=== PATIENT | male | born 1960 | race African-American/Black ===

== ENCOUNTER 2021-07-19 19:58 | Emergency (ER) | payer MEDICARE ==
[2021-07-19] MEDS ORDERED: Morphine 4 MG/ML VIAL ONE (20:40)
== END 2021-07-19 21:01 | disposition home or self-care (01) ==
LOC: ERS 19:58
DX: M54.31 Sciatica, right side (principal); I10 Essential (primary) hypertension; E78.5 Hyperlipidemia, unspecified; K21.9 Gastro-esophageal reflux disease without esophagitis; E78.00 Pure hypercholesterolemia, unspecified; F17.210 Nicotine dependence, cigarettes, uncomplicated; Z79.899 Other long term (current) drug therapy
CPT/HCPCS: 96372; 99283; J2270

== ENCOUNTER 2021-09-13 11:25 | Outpatient (CLI) | payer MEDICARE ==
[2021-09-13 23:22] LABS: SARS-CoV-2 PCR by NAA Not Detected (NotDetected)
== END 2021-09-13 11:26 | disposition home or self-care (01) ==
LOC: LABBT 11:25
PROVIDERS: ATTEND Orthopaedic Surgery
DX: Z20.822 Contact with and (suspected) exposure to COVID-19 (principal)
CPT/HCPCS: U0003; U0005

== ENCOUNTER 2022-07-10 14:38 | Outpatient (CLI) | payer OTHER | END 2022-07-10 14:39 | disposition home or self-care (01) | PROVIDERS: ATTEND Family Medicine | DX: M54.9 Dorsalgia, unspecified (principal); G89.29 Other chronic pain ==